=== PATIENT | male | born 1985 | race Caucasian/White ===

== ENCOUNTER 2019-06-15 09:13 | Emergency (ER) | payer OTHER, SELFPAY ==
[2019-06-15] VITALS (7 sets, daily range): BP systolic 155–188; BP diastolic 105–122; PULSE 77–89; RESP 9–18; O2SAT 96–99; BMI 34.2
--- NOTE | 2019-06-15 09:24 | DI.RAD.S_ITS ---
PROCEDURE: XR CHEST 1V INDICATIONS: chest pain TECHNIQUE: One view of the chest was acquired. COMPARISON: None. FINDINGS: Surgical changes and devices: None. Lungs and pleura: Lungs are clear. No pleural effusions or pneumothorax. Mediastinum: Mediastinal contours appear normal. Heart size is normal. Bones and chest wall: No suspicious bony lesions. Overlying soft tissues appear unremarkable. IMPRESSION: Portable chest within normal limits. Dictated by: David Pope M.D. on 06/15/2019 at 8:50 Approved by: David Pope M.D. on 06/15/2019 at 8:51
[2019-06-15 09:43] LABS: Prothrombin Time 11.9 SECONDS (10.1-12.7)
[2019-06-15 09:46] LABS: PTT Partial Thromboplastin Tim 32 SECONDS (26.4-36.2)
[2019-06-15 09:47] LABS: Add Manual Diff / Slide Review NO; Basophils Absolute Auto 0 /uL (0-100); Basophils Percent Auto 0.5 % (0-2); Eosinophils Absolute Auto 100 /uL (0-450); Eosinophils Percent Auto 1.9 % (2-4); Hematocrit 47.6 % (41-53); Hemoglobin 16.9 g/dL (13.5-17.5); Lymphocytes Absolute Auto 1500 /uL (1100-4500); Lymphocytes Percent Auto 28.6 % (25-40); Mean Corpuscular HGB Conc 35.4 % (30-36); Mean Corpuscular Hemoglobin 29.7 PG (26-34); Mean Corpuscular Volume 83.9 fL (80-100); Monocytes Absolute Auto 400 /uL (0-900); Monocytes Percent Auto 8.4 % (3-14); Neutrophils Absolute Auto 3200 /uL (1500-7000); Neutrophils Percent Auto 60.6 % (50-75); Platelet Count 159 X10^3/uL (150-400); Red Blood Cell Count 5.67 X10^6/uL (4.5-5.9); Red Cell Distribution Width 13.9 % (11.6-14.8); White Blood Cell Count 5.3 X10^3/uL (4.5-11.0)
[2019-06-15 09:58] LABS: Alanine Aminotransferase 59 IU/L (<50); Albumin 4.9 g/dL (3.5-5.0); Albumin Globulin Ratio 1.4 (1.0-2.8); Alkaline Phosphatase 74 U/L (38-126); Aspartate Aminotransferase 39 IU/L (17-59); Bilirubin Total 1.4 mg/dL (0.2-1.3); Blood Urea Nitrogen 14 mg/dL (9-20); Calcium 9.4 mg/dL (8.4-10.2); Carbon Dioxide 26 mmol/L (22-32); Chloride 104 mmol/L (98-107); Creatine Kinase 102 U/L (55-170); Estimated Glomerular Filt Rate > 60.0 mL/min (>60); Globulin 3.5 g/dL (1.7-4.1); Glucose 103 mg/dL (70-100); Lipase 79 U/L (23-300); Potassium 4.3 mmol/L (3.4-5.1); Sodium 140 mmol/L (137-145); Total Protein 8.4 g/dL (6.3-8.2)
[2019-06-15 10:10] LABS: Troponin I < 0.012 ng/mL (0.01-0.034)
[2019-06-15 10:13] LABS: CKMB % Relative Index 0.6 % (1.5-5.0); HEMOLYSIS 19 (0-50)
--- NOTE | 2019-06-15 10:26 | ED_ITS ---
HPI - Chest Pain General Chief Complaint: Chest Pain Stated Complaint: chest pain high blood pressure Source: patient Mode of arrival: Ambulatory History of Present Illness HPI narrative: cc: Atypical chest pain HPI: The patient is a 34-year-old male who presents to the emergency department with atypical chest pain. The patient states that on Sunday night he made level with his and felt faint. [place] Sunday [place] felt [place]. After arrival on the he walked around the beach and played with his children and he became weak tired exhausted and again felt faint. This morning he got in the car and went to get coffee and checked his blood pressure at [facility] at was 167/122. He went to an urgent care center and his blood pressure was again high and they sent him here to the emergency department. The patient has a history of hypertension but is not being actively treated. He states that this may be acute anxiety because a family friend recently had hypertension and of a myocardial infarction while on vacation. The patient denies any direct chest pain palpitations dizziness cough nausea vomiting diarrhea or any urinary symptoms. He has had mild shortness of breath he has had a minimal headache but no numbness tingling paresthesias or anesthesia. He has had no loss of vision or change in vision or diplopia. He denies a history of asthma myocardial infarction diabetes mellitus but has had hypertension. He does not smoke cigarettes drink alcohol or use any marijuana. 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 He states that he is now [place]. He states that I am under a lot of stress and I think that it may be acute anxiety. Related Data Previous Rx's Medication Instructions Recorded lorazepam [Ativan] 0.5 mg PO TID PRN #10 tab 06/15/19 Allergies Allergy/AdvReac Type Severity Reaction Status Date / Time Sulfa (Sulfonamide Allergy Verified 06/15/19 09:22 Antibiotics) Review of Systems Review of Systems Narrative: Review of systems were all negative except for those mentioned in the history of present illness. Exam Narrative Exam Narrative: PHYSICAL EXAM: CONSTITUTIONAL: Awake, Alert, Oriented, Coherent, Cooperative in NAD. Does not appear toxic or ill. HEAD: AT/NC EENT: PERRL, FROM of eyes, no discharge, no nystagmus Oral mucosa is moist and pink, posterior pharynx is without erythema or exudate. NECK: Supple, no obvious JVD, Trachea is midline without stridor, no palpable LN or masses. SPINE: No gross deformity, no palpable tenderness of the cervical, thoracic, lumbar or sacral spine. No CVA tenderness. THORAX: No deformity, retractions, chest wall tenderness, subcutaneous air or crepitice. LUNGS: Clear with symmetrical breath sounds without respiratory distress HEART: Normal heart tones, regular rhythm and rate without murmur. ABDOMEN: Soft, non-tender, normal bowel sounds without guarding, rebound, rigidity or palpable mass EXTREMITIES: No edema, cyanosis, deformity or tenderness. SKIN: No rash, bruising, petechiae or purpura. NEURO: Awake, alert, oriented, conversive, no focal facial asymmetry cranial nerves II-XII are symmetrical and normal, moves all 4 extremities and is ambulatory Initial Vital Signs Initial Vital Signs: Vital Signs Pulse Rate 89 06/15/19 09:22 Respiratory Rate 16 06/15/19 09:22 Blood Pressure 171/122 H 06/15/19 09:22 Pulse Oximetry 99 06/15/19 09:22 Course Course Course Narrative: 1329 the patient's 2nd troponin is negative. I believe the patient is having an anxiety reaction and will give him a few Ativan he was informed that if he develops severe headache worsening chest pain shortness of breath passing-out he needs to return to the emergency department otherwise he needs to follow up with his primary care doctor. Orders Ordered: Discontinued Medications Hydralazine HCl (Apresoline) 10 mg IV NOW ONE Stop: 06/15/19 11:46 Last Admin: 06/15/19 12:21 Dose: 10 mg Documented by: GILES Vital Signs Vital signs: Vital Signs - 8 hr 06/15/19 09:22 06/15/19 10:08 06/15/19 10:30 Pulse Rate 89 87 77 Respiratory Rate 16 18 9 L Blood Pressure 171/122 H Blood Pressure [Left Arm] 172/117 H 181/115 H Pulse Oximetry 99 98 96 06/15/19 11:00 06/15/19 12:21 06/15/19 13:00 Pulse Rate 78 78 84 Respiratory Rate 16 14 Blood Pressure 188/113 H Blood Pressure [Left Arm] 179/115 H 165/105 H Pulse Oximetry 99 99 MDM - Chest Pain Medical Records Data Attestation: I reviewed the patient's medical records. Lab Data Attestation: I reviewed the patient's lab results. Result diagrams: 06/15/19 09:27 06/15/19 09:27 Labs: Lab Results 06/15/19 06/15/19 06/15/19 Range/Units 09:27 09:27 09:27 WBC 5.3 (4.5-11.0) X10^3/uL RBC 5.67 (4.5-5.9) X10^6/uL Hgb 16.9 (13.5-17.5) g/dL Hct 47.6 (41-53) % MCV 83.9 (80-100) fL MCH 29.7 (26-34) PG MCHC 35.4 (30-36) % RDW 13.9 (11.6-14.8) % Plt Count 159 (150-400) X10^3/uL Neut % (Auto) 60.6 (50-75) % Lymph % (Auto) 28.6 (25-40) % Valencia % (Auto) 8.4 (3-14) % Eos % (Auto) 1.9 L (2-4) % Baso % (Auto) 0.5 (0-2) % Neut # (Auto) 3200 (3843-4968) /uL Lymph # (Auto) 1500 (3307-5240) /uL Valencia # (Auto) 400 (0-900) /uL Eos # (Auto) 100 (0-450) /uL Baso # (Auto) 0 (0-100) /uL PT 11.9 (10.1-12.7) SECONDS INR 1.0 (0.9-1.3) APTT 32 (26.4-36.2) SECONDS Sodium 140 (137-145) mmol/L Potassium 4.3 (3.4-5.1) mmol/L Chloride 104 (98-107) mmol/L Carbon Dioxide 26 (22-32) mmol/L BUN 14 (9-20) mg/dL Creatinine 1.00 (0.66-1.25) mg/dL Estimated GFR > 60.0 (>60) mL/min BUN/Creatinine Ratio 14.0 (6-22) Glucose 103 H (70-100) mg/dL Calcium 9.4 (8.4-10.2) mg/dL Total Bilirubin 1.4 H (0.2-1.3) mg/dL AST 39 (17-59) IU/L ALT 59 H (<50) IU/L Alkaline Phosphatase 74 (38-126) U/L Total Creatine Kinase 102 (55-170) U/L CK-MB (CK-2) 0.60 (<2.37) ng/mL CK-MB (CK-2) Rel Index 0.6 L (1.5-5.0) % Troponin I < 0.012 (0.01-0.034) ng/mL Total Protein 8.4 H (6.3-8.2) g/dL Albumin 4.9 (3.5-5.0) g/dL Globulin 3.5 (1.7-4.1) g/dL Albumin/Globulin Ratio 1.4 (1.0-2.8) Lipase 79 (23-300) U/L 06/15/19 Range/Units 12:14 WBC (4.5-11.0) X10^3/uL RBC (4.5-5.9) X10^6/uL Hgb (13.5-17.5) g/dL Hct (41-53) % MCV (80-100) fL MCH (26-34) PG MCHC (30-36) % RDW (11.6-14.8) % Plt Count (150-400) X10^3/uL Neut % (Auto) (50-75) % Lymph % (Auto) (25-40) % Valencia % (Auto) (3-14) % Eos % (Auto) (2-4) % Baso % (Auto) (0-2) % Neut # (Auto) (5015-0338) /uL Lymph # (Auto) (0312-0790) /uL Valencia # (Auto) (0-900) /uL Eos # (Auto) (0-450) /uL Baso # (Auto) (0-100) /uL PT (10.1-12.7) SECONDS INR (0.9-1.3) APTT (26.4-36.2) SECONDS Sodium (137-145) mmol/L Potassium (3.4-5.1) mmol/L Chloride (98-107) mmol/L Carbon Dioxide (22-32) mmol/L BUN (9-20) mg/dL Creatinine (0.66-1.25) mg/dL Estimated GFR (>60) mL/min BUN/Creatinine Ratio (6-22) Glucose (70-100) mg/dL Calcium (8.4-10.2) mg/dL Total Bilirubin (0.2-1.3) mg/dL AST (17-59) IU/L ALT (<50) IU/L Alkaline Phosphatase (38-126) U/L Total Creatine Kinase (55-170) U/L CK-MB (CK-2) (<2.37) ng/mL CK-MB (CK-2) Rel Index (1.5-5.0) % Troponin I < 0.012 (0.01-0.034) ng/mL Total Protein (6.3-8.2) g/dL Albumin (3.5-5.0) g/dL Globulin (1.7-4.1) g/dL Albumin/Globulin Ratio (1.0-2.8) Lipase (23-300) U/L ECG Data Attestation: I personally reviewed and interpreted this ECG as follows: Interpretation: The patient's EKG obtained on June 15 at 09:2 7:24 a.m. revealed a ventricular rate of 77 normal intervals normal axis with a Q-wave in lead III AVF and V1. T-waves are inverted in III and in V1. There are no other acute diagnostic ST segment changes. There is no evidence of acute coronary ischemia. Discharge Plan Departure Patient Disposition: Home Clinical Impression: Diastolic hypertension, Atypical chest pain, Anxiety Discharge Date/Time: 06/15/19 14:59 Instructions: High Blood Pressure (Hypertension) (Alternative Therapy), Essential Hypertension, DI for Atypical Chest Pain, DI for Anxiety -- Adult Activity Restrictions/Additional Instructions: 1. Check your blood pressure only once a day and recorded keeping a log to take to your family physician. Follow-up with your family physician soon and have your blood pressure evaluated. 2. Take the Ativan as a rescue medicine when acutely anxious. 3. Return to the emergency department if you develop persistent heavy crushing pressure chest pain that lasts longer than 20 minutes and especially if it radiates to year neck jaw shoulder or arms. If you become dizzy lightheaded or passed out you need to be proceed to the nearest emergency department. If your blood pressure is high in your developing severe headache and chest pain with shortness of breath you need to be evaluated. Prescriptions: New lorazepam [Ativan] 0.5 mg tablet 0.5 mg PO TID PRN (Reason: anxiety) Qty: 10 RF: 0
[2019-06-15] MEDS: HYDRALAZINE 20 MG/ML VIAL 10 MG IV (12:21)
[2019-06-15 12:41] LABS: Troponin I < 0.012 ng/mL (0.01-0.034)
--- NOTE | 2019-06-15 13:50 | PC.NURSE ---
provider notified of reassessment.
== END 2019-06-15 14:59 | disposition home or self-care (01) ==
PROVIDERS: Emergency Provider Emergency Medicine
DX: I10 Essential (primary) hypertension (principal); R07.89 Other chest pain; F41.9 Anxiety disorder, unspecified
CPT/HCPCS: 36415; 71045; 80053; 82550; 82553; 83690; 84484; 85025; 85610; 85730; 93005; 96374; 99284; 99285; J0360